=== PATIENT | female | born 1940 | race Hispanic/Latino ===

== ENCOUNTER → 2018-12-10 | Day surgery (SDC) | payer MEDICARE, OTHER ==
[~2018-12-10] MED LIST: ALENDRONATE SOD70 MG PO; CALCIUM; MIDAZOLAM HCL 2 MG/2 ML VIAL ONE; ONCE DAILY1 EACH PO; OR PHACO EYE KIT ONE; PREOP PHACO EYE KIT ONE; SIMVASTATIN40 MG PO; TRIAMTERENE-HCTZ1 EA PO; VIT D; [UNRECOGNIZED DRUG - OTHER]
[2018-12-10 13:15] VITALS: BP 122/82
== END | disposition home or self-care (01) ==
LOC: OR 09:01
PROVIDERS: ATTEND Ophthalmology
DX: H25.12 Age-related nuclear cataract, left eye (principal); I10 Essential (primary) hypertension; E78.5 Hyperlipidemia, unspecified; M06.9 Rheumatoid arthritis, unspecified; K21.9 Gastro-esophageal reflux disease without esophagitis; F32.9 Major depressive disorder, single episode, unspecified; F41.9 Anxiety disorder, unspecified; Z91.040 Latex allergy status
CPT/HCPCS: 66984; J2250; V2632